=== PATIENT | female | born 1945 | race Caucasian/White ===

== ENCOUNTER 2018-06-22 19:54 | Emergency (ER) | payer OTHER ==
[~2018-06-22] VITALS: Ht 157.5 cm; Wt 54.0 kg
--- NOTE | 2018-06-22 19:57 | NUR ---
PT BIB [facility]. PT A/OX4, RESPONSIVE TO VERBAL AND TACTILE STIMULI. PT C/O BILATERAL KNEE PAIN THAT STARTED TODAY AROUND 1630, NO PROVOKING FACTOR, SHARP IN QUALITY, DOES NOT RADIATE, 06/23, CONSTANT. PT DENIES INJURY/FALL. PT STATES SHE HAD BILATERAL KNEE CORTISONE SHOTS TODAY AT 1530. Addendum: 06/22/18 at 2004 by ARNOLDO UPON ASSESSMENT, BILATERAL KNEES NOT SWOLLEN IN APPEARANCE, WARM TO TOUCH, SKIN COLOR NORMAL. BLE PMSC INTACT AND < 3 SECS.
--- NOTE | 2018-06-22 20:14 | NUR ---
SONG SARAVIA AT BEDSIDE.
[2018-06-22] MEDS ORDERED: ONDANSETRON 4 MG/2 ML VIAL IV ONE (20:30)
[2018-06-22] MEDS ORDERED: MORPHINE SULFATE 4 MG/1 ML DISP.SYRIN ONE ×3 (20:30→22:08)
[2018-06-22] MEDS ORDERED: MORPHINE SULFATE 2 MG/1 ML DISP.SYRIN IV ONE (20:30)
[2018-06-22] MEDS ORDERED: ONDANSETRON 4 MG/2 ML VIAL ONE (20:30)
[2018-06-22 20:32] LABS: BASOPHILS % (AUTO) 0.2 % (0.0-2.0); HEMATOCRIT 42.4 % (31.2-41.9); HEMOGLOBIN 14.6 g/dL (10.9-14.3); LYMPHOCYTES # (AUTO) 0.5 K/uL (20.0-40.0); LYMPHOCYTES % (AUTO) 3.9 % (20.5-51.5); MEAN CORPUSCULAR HEMOGLOBIN 31.5 uug (24.7-32.8); MEAN CORPUSCULAR HGB CONC 34 g/dL (32.3-35.6); MEAN CORPUSCULAR VOLUME 91.5 fL (75.5-95.3); MONOCYTES # (AUTO) 0.2 K/uL (2.0-10.0); MONOCYTES % (AUTO) 1.8 % (0.0-11.0); NEUTROPHILS # (AUTO) 11.3 K/uL (1.8-8.9); NEUTROPHILS % (AUTO) 94.1 % (38.5-71.5); PLATELET COUNT (AUTO) 288 K/uL (179-408); RED BLOOD CELL COUNT(AUTO) 4.64 MIL/uL (3.63-4.92)
[2018-06-22 20:39] LABS: CREATININE 1.2 mg/dL (0.6-1.3); POTASSIUM 3.2 mmol/L (3.5-5.1)
[2018-06-22 20:45] LABS: BILIRUBIN,DIRECT 0.1 mg/dL (0.0-0.2); BILIRUBIN,TOTAL 0.3 mg/dL (0.2-1.0)
[2018-06-22] MEDS ORDERED: MORPHINE SULFATE 4 MG/1 ML DISP.SYRIN IV ONE ×2 (21:00→22:15)
--- NOTE | 2018-06-22 21:44 | NUR ---
Called [facility] per request, Harjit SARAVIA to call back to speak with .
--- NOTE | 2018-06-22 21:57 | NUR ---
SONG SARAVIA ON PHONE WITH ARBEN SARAVIA.
--- NOTE | 2018-06-22 22:06 | NUR ---
SONG SARAVIA AT BEDSIDE FOR PT UPDATE.
--- NOTE | 2018-06-22 22:15 | NUR ---
XRAY AT BEDSIDE.
[2018-06-22] MEDS ORDERED: PANTOPRAZOLE SODIUM 40 MG TABLET.DR PO ONE ×2 (23:00→23:04)
[2018-06-22] MEDS ORDERED: DEXAMETHASONE SOD PHOSPHATE 4 MG INJ IV ONE (23:00)
[2018-06-22] MEDS ORDERED: DEXAMETHASONE SOD PHOSPHATE 4 MG INJ ONE (23:04)
--- NOTE | 2018-06-23 00:09 | NUR ---
PT ATTEMPTED TO WALK W/ HELP OF RN. PT UNABLE TO BEAR ANY WEIGHT ON R LEG. PT ASSISTED BACK TO BED.
--- NOTE | 2018-06-23 00:13 | NUR ---
CALLED [facility], AWAITING CALL-BACK FROM DR. PUGH.
--- NOTE | 2018-06-23 00:26 | NUR ---
DA. LUCAS ON THE PHONE WITH DR. PUGH FROM [place].
--- NOTE | 2018-06-23 01:00 | NUR ---
Received call from [facility], spoke with Dickson. Patient accepted to go to [facility], accepting MD Dr. Case, ER phone number .
--- NOTE | 2018-06-23 01:23 | NUR ---
REPORT GIVEN TO ABHIJIT LIRA, AT [facility].
[2018-06-23] MEDS ORDERED: ONDANSETRON 4 MG/2 ML VIAL ONE (01:41)
[2018-06-23] MEDS ORDERED: MORPHINE SULFATE 4 MG/1 ML DISP.SYRIN ONE (01:41)
[2018-06-23] MEDS ORDERED: ONDANSETRON 4 MG/2 ML VIAL IV ONE (01:45)
[2018-06-23] MEDS ORDERED: MORPHINE SULFATE 4 MG/1 ML DISP.SYRIN IV ONE (01:45)
--- NOTE | 2018-06-23 01:47 | NUR ---
PRN 115 EMT'S IN ER TO TRANS PT TO [facility].
--- NOTE | 2018-06-23 01:56 | NUR ---
Patient Tranfers to outside Facility [facility]. Physician: DR. CHAUDHRY.
== END 2018-06-23 02:00 | disposition short-term general hospital (02) ==
LOC: ER 19:59
DX: M25.561 Pain in right knee (principal); M25.562 Pain in left knee; M25.461 Effusion, right knee; I10 Essential (primary) hypertension; Z88.0 Allergy status to penicillin; Z88.6 Allergy status to analgesic agent
CPT/HCPCS: 29505; 36415; 73564; 80048; 80076; 85025; 85651; 85730; 96374; 96375; 96376; 99285; A4663; J1100; J2270 ×4; J2405 ×2